=== PATIENT | female | born 1950 | race Caucasian/White ===

== ENCOUNTER → 2016-06-15 | Outpatient (CLI) | payer OTHER ==
--- NOTE | 2016-06-15 11:27 | DX ---
Bilateral Hands - Six Views Total Indication: Hand pain. Technique: PA, oblique, and [place] views. Comparison: None. Findings: The bones are anatomically aligned. Bone mineralization is normal. No fracture or bone lesi on. Minimal productive arthropathy involves the distal interphalangeal joints of the second and third fingers bilaterally. Trace periarticular calcification is present along the margin of the second dis radha interphalangeal joints. No erosions or chondrocalcinosis. Impression: 1. 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 2. No erosive arthropathy.
== END ==
LOC: BRMIMAGING 09:19
PROVIDERS: ATTEND Internal Medicine
DX: M79.641 Pain in right hand (principal); M79.642 Pain in left hand
CPT/HCPCS: 73130-PO